=== PATIENT | male | born 1955 | race Two or more races ===

== ENCOUNTER 2017-04-23 22:30 | Emergency (ER) | payer OTHER ==
[~2017-04-23] VITALS: Ht 172.7 cm; Wt 88.9 kg
[2017-04-23 22:45] VITALS: Ht 172.7 cm; Wt 88.9 kg
[2017-04-24 01:17] VITALS: BP 134/94
== END 2017-04-24 01:17 | disposition home or self-care (01) ==
LOC: ED 22:30
DX: H81.10 Benign paroxysmal vertigo, unspecified ear (principal); I10 Essential (primary) hypertension
CPT/HCPCS: J8597